=== PATIENT | male | born 1975 | race Caucasian/White ===

== ENCOUNTER 2016-09-17 12:12 | Emergency (ER) | payer SELFPAY ==
[~2016-09-17] VITALS: Ht 185.4 cm; Wt 86.4 kg
[~2016-09-17 12:12] MED LIST: BACTRIM DS1 TAB OR; BACTRIM DS1 TAB PO; DISALCID750 MG OR; DOXYCYC MONO100 M1 OR; LORTAB 5 OR; LORTAB 7.5 OR; MOTRIN IB200 MG OR; NAPROSYN500 MG PO; NO CURRENT MEDS; PERCOCET 5/325M1 TAB OR; PERCOCET1 TA2 OR; PERCOGESIC1 TAB OR; RESTORIL30 MG OR; SOMA350 MG OR; TETRACYCLINE500 MG OR; TYLENOL500 MG OR; ULTRAM50 MG OR
[2016-09-17 13:40] LABS: ALBUMIN 4.2 g/dL (3.2-5.0); ALKALINE PHOSPHATASE 66 u/l (38-126); ANION GAP 15 (6-22 (CALC)); BILIRUBIN, TOTAL 0.5 mg/dL (0.0-1.4); BUN 11 mg/dL (9-20); BUN/CREATININE RATIO 10 (12-20 (CALC)); CALCIUM 9.8 mg/dL (8.4-10.2); CARBON DIOXIDE 24 mmol/l (22-30); CHLORIDE 106 mmol/l (95-108); CREATININE 1.1 mg/dL (0.7-1.3); GFR > 60 ML/MIN (>=60 (CALC)); GFR FOR AFR.AMER. > 60 ML/MIN (>=60 (CALC)); GLUCOSE 84 mg/dL (75-110); HEMATOCRIT 45.8 % (39.0-50.0); HEMOGLOBIN 15.6 g/dl (14.0-18.0); IMMATURE GRANULOCYTES 1.2 % (0.0-1.0); MEAN CELL VOLUME 92.2 fL CALC (80.0-100.0); MEAN CORPUSCULAR HGB 31.4 pG CALC (26.0-32.0); MEAN CORPUSCULAR HGB CONC 34.1 g/L CALC (32.0-36.0); NEUT# 6.44 thou/uL (1.82-7.42); POTASSIUM 4.4 mmol/l (3.5-5.1); RED BLOOD COUNT 4.97 mill/uL (4.70-6.10); RED CELL DISTRI WIDTH 12.4 % (11.5-15.5); SGOT/AST 17 u/l (17-59); SGPT/ALT 29 u/l (21-72); SODIUM 141 mmol/l (137-146)
[2016-09-17 16:12] VITALS: BP 157/83
== END 2016-09-17 16:13 | disposition short-term general hospital (02) | DRG 581 ==
LOC: ED 12:12
PROVIDERS: Emergency Medicine
PROC: 0JQ40ZZ Repair Right Neck Subcutaneous Tissue and Fascia, Open Approach (ICD-10-PCS; principal; 2016-09-17)
DX: S11.91XA Laceration without foreign body of unspecified part of neck, initial encounter (principal); F17.210 Nicotine dependence, cigarettes, uncomplicated; G89.29 Other chronic pain; M54.9 Dorsalgia, unspecified; X99.8XXA Assault by other sharp object, initial encounter; Y92.009 Unspecified place in unspecified non-institutional (private) residence as the place of occurrence of the external cause
CPT/HCPCS: J2060; Q9967

== ENCOUNTER 2016-09-24 11:11 | Emergency (ER) | payer SELFPAY ==
[~2016-09-24] VITALS: Ht 185.4 cm; Wt 90.0 kg
[2016-09-24 11:40] VITALS: BP 154/101
== END 2016-09-24 11:40 | disposition home or self-care (01) | DRG 950 ==
LOC: ED 11:11
DX: S11.91XD Laceration without foreign body of unspecified part of neck, subsequent encounter (principal)

== ENCOUNTER → 2018-07-16 | Outpatient (REF) | payer OTHER | END | disposition home or self-care (01) | DRG 556 | LOC: DI 13:49 | PROVIDERS: ATTEND Nurse Practitioner Family | DX: M25.512 Pain in left shoulder (principal) ==